=== PATIENT | female | born 1955 | race African-American/Black ===

== ENCOUNTER 2017-01-04 20:12 | Emergency (ER) | payer BC ==
[~2017-01-04] VITALS: Ht 165.1 cm; Wt 64.9 kg
[2017-01-04 21:31] VITALS: BP 107/69
[2017-01-04] MEDS ORDERED: Bacitracin Oint UD TOPIC ONE (22:00)
[2017-01-04] MEDS ORDERED: Tetanus/Diptheria/Pertussis Vaccine 0.5ml Syr IM ONE (22:00)
--- NOTE | 2017-01-04 22:12 | Emergency Room Report ---
History of Present Illness General Chief Complaint: Laceration Source: Patient Present Illness HPI Is a 61-year-old female who is right-hand dominant. She presents with injury to her forearm. She was walking into a pole or tree root and skin her forearm. This occurred prior to arrival. No nausea no vomiting. No loss of consciousness. No other injury. No bleeding. Allergies: Coded Allergies: No Known Allergies (Unverified , 01/04/17) Patient History Past Medical History: see triage record, old chart reviewed Past Surgical History: none Pertinent Family History: none Social History: Denies: smoking Last Menstrual Period: 12 years ago Now: No : 1 Para: 1 Immunizations: other Reviewed Nursing Documentation: PMH: Agreed, PSxH: Agreed Nursing Documentation-PMH Past Medical History: No Stated History Review of Systems Eye: Denies: blurred vision, eye pain ENT: Denies: ear pain, nose congestion, throat swelling Respiratory: Denies: cough, shortness of breath Cardiovascular: Denies: chest pain, palpitations Gastrointestinal: Denies: abdominal pain, diarrhea, nausea, vomiting Musculoskeletal: Denies: back pain, joint pain Skin: Denies: rash Neurological: Denies: headache, numbness Endocrine: Denies: increased thirst, increased urine Hematologic/Lymphatic: Denies: easy bruising All Other Systems: negative except mentioned in HPI Physical Exam Vital Signs Date Time Temp Pulse Resp B/P Pulse Ox O2 Delivery O2 Flow Rate FiO2 01/04/17 21:25 98.1 76 15 107/69 98 Room Air vitals normal Sp02 EP Interpretation: reviewed, normal General Appearance: well appearing, no apparent distress, alert Head: normocephalic, atraumatic Eyes: bilateral eye EOMI, bilateral eye PERRL ENT: hearing grossly normal, normal pharynx Neck: full range of motion, supple, no meningismus Respiratory: chest non-tender, lungs clear, normal breath sounds Cardiovascular #1: regular rate, rhythm, no murmur Gastrointestinal: normal bowel sounds, non tender, no mass, no organomegaly, no bruit, non-distended Musculoskeletal: back normal, gait/station normal, normal range of motion, other - Right forearm: On the posterior aspect of proximal forearm near the elbow area, there is a 5 cm abrasion. No laceration. Full range of motion of the elbow. For his most of the wrist. No bony tenderness. Psychiatric: mood/affect normal Skin: warm/dry Medical Decision Making Diagnostic Impression: Primary Impression: Forearm abrasion, non-infected ER Course Patient presents with abrasion to the forearm. No laceration. We'll discharge home. Last Vital Signs Date Time Temp Pulse Resp B/P Pulse Ox O2 Delivery O2 Flow Rate FiO2 01/04/17 21:31 98.1 71 15 107/69 98 Room Air Status: improved Disposition: HOME, SELF-CARE Condition: Stable Referrals: NON PHYSICIAN (PCP) Additional Instructions: Followup with your Dr. in 7 days. Keep wound clean. Return if worse. ABEBE FOSTER M.D. Jan 04, 2017 22:12
[2017-01-04 22:30] VITALS: BP 111/65
== END 2017-01-04 22:30 | disposition home or self-care (01) ==
LOC: EMR 21:56
DX: S50.811A Abrasion of right forearm, initial encounter (principal); W22.8XXA Striking against or struck by other objects, initial encounter; Y92.89 Other specified places as the place of occurrence of the external cause; Z23 Encounter for immunization
CPT/HCPCS: 90471; 90715; 96372; 99283